=== PATIENT | male | born 1930 | race Hispanic/Latino ===

== ENCOUNTER 2018-06-01 19:03 | Inpatient (IN) | payer MEDICARE ==
[~2018-06-01] VITALS: Ht 165.1 cm; Wt 76.7 kg
[2018-06-01 22:06] VITALS: BP 156/54
[2018-06-01 22:39] LABS: BASOPHILS % (AUTO) 3.2 % (0.0-5.0); EOSINOPHILS % (AUTO) 8.2 % (0.0-8.0); HEMATOCRIT 35.5 % (42-54); LYMPHOCYTES % (AUTO) 16.6 % (21.0-51.0); MEAN CORPUSCULAR HEMOGLOBIN 32.1 pg (27.0-33.0); MEAN CORPUSCULAR HGB CONC 32.9 g/dL (32.0-36.0); MEAN CORPUSCULAR VOLUME 97.4 fL (79-99); MONOCYTES % (AUTO) 8.8 % (3.0-13.0); NEUTROPHILS % (AUTO) 63.2 % (40.0-77.0); NUCLEATED RED BLOOD CELLS 0.1 % (0.0-0.19); PLATELET COUNT (AUTO) 186 K/uL (130-400); RED BLOOD CELL COUNT(AUTO) 3.64 MIL/uL (4.50-6.20); RED CELL DISTRIBUTION WIDTH 14.6 % (11.0-15.5); WHITE BLOOD COUNT (AUTO) 7.2 K/uL (4.8-10.8)
[2018-06-01] MEDS ORDERED: NITROGLYCERIN 0.4 MG SL TAB SL PRN (22:45)
[2018-06-01] MEDS ORDERED: ONDANSETRON HCL MDV 20ML 2 MG/ML VIAL IV PRN (22:45)
[2018-06-01] MEDS ORDERED: GLUCAGON 1MG KIT 1 MG ML IM PRN (22:45)
[2018-06-01] MEDS ORDERED: DEXTROSE 50%-WATER 50 ML DISP.SYRIN IV PRN (22:45)
[2018-06-01] MEDS ORDERED: ACETAMINOPHEN 325 MG TAB PO PRN (22:45)
[2018-06-01 22:49] LABS: INR 1.05 (0.85-1.15); PARTIAL THROMBOPLASTIN TIME 32.7 SEC (26.3-35.5)
[2018-06-01 22:53] LABS: ALBUMIN 3.4 g/dL (3.5-5.0); BILIRUBIN,TOTAL 0.3 mg/dL (0.2-1.0); POTASSIUM 5.3 mmol/L (3.5-5.1)
[2018-06-01 23:05] LABS: HEMOGLOBIN A1C 5.7 % (4.0-6.0)
[2018-06-01 23:29] LABS: CREATININE 9.2 mg/dL (0.5-1.5)
[2018-06-02] VITALS (13 sets, daily range): BP systolic 94–148; BP diastolic 41–61
[2018-06-02 04:13] LABS: POTASSIUM 4.8 mmol/L (3.5-5.1)
[2018-06-02 04:29] LABS: CREATININE 9.6 mg/dL (0.5-1.5)
[2018-06-02] MEDS: INSULIN HUMULIN R 100 UNIT/ML 3ML SQ SCH ×4 (06:00→17:09)
[2018-06-02] MEDS ORDERED: LOSA100T2 PO (08:12)
[2018-06-02] MEDS ORDERED: CLOP75TA14 PO (08:12)
[2018-06-02] MEDS ORDERED: ROSU10TA27 PO (08:12)
[2018-06-02] MEDS ORDERED: PARO-37 PO (08:12)
[2018-06-02] MEDS ORDERED: METO-408 PO (08:12)
[2018-06-02] MEDS ORDERED: ALPR0.255 PO (08:12)
[2018-06-02] MEDS ORDERED: CYAN50008 PO (08:12)
[2018-06-02] MEDS ORDERED: CETI10TA57 PO (08:12)
[2018-06-02] MEDS ORDERED: NITR0.4T50 SL (08:12)
[2018-06-02] MEDS ORDERED: ASPI-555 PO (08:12)
[2018-06-02] MEDS ORDERED: LEVO112T4 PO (08:12)
[2018-06-02] MEDS ORDERED: BIMA12.5OS OU (08:12)
[2018-06-02] MEDS ORDERED: AMLO10TA6 PO (08:12)
[2018-06-02] MEDS ORDERED: ISOS60TA4 PO (08:12)
[2018-06-02] MEDS ORDERED: FOLI0.4T2 PO (08:12)
[2018-06-02] MEDS ORDERED: FOLI1CAP2 PO (08:12)
[2018-06-02] MEDS ORDERED: SEVE800T7 PO (08:12)
[2018-06-02] MEDS ORDERED: ALPRAZOLAM 0.25 MG TABLET PO PRN (08:15)
[2018-06-02] MEDS ORDERED: NITROGLYCERIN 0.4 MG SL TAB SL SCH (08:15)
[2018-06-02] MEDS ORDERED: IOHEXOL 350 MG/ML 100ML INFUS..BTL IV ONE (08:51)
[2018-06-02] MEDS ORDERED: BIVALIRUDIN 250 MG/VIAL IV ONE (08:51)
[2018-06-02] MEDS ORDERED: LIDOCAINE HCL 2% 20ML ONE (08:51)
[2018-06-02] MEDS ORDERED: NITROGLYCERIN 5 MG/ML 10 ML VIAL IV ONE (08:51)
[2018-06-02] MEDS ORDERED: IOHEXOL-350 50ML VIAL IV ONE (08:51)
[2018-06-02] MEDS: ASPIRIN 81MG TAB.CHEW PO SCH (09:00)
[2018-06-02] MEDS: METOPROLOL TARTRATE 25 MG TAB PO SCH ×2 (09:00→22:18)
[2018-06-02] MEDS: FAMOTIDINE/PF 20 MG/2 ML VIAL IV SCH (09:00)
[2018-06-02] MEDS: LOSARTAN 100 MG TABLET PO SCH (09:00)
[2018-06-02] MEDS: FOLIC ACID 1 MG TABLET PO SCH (09:00)
[2018-06-02] MEDS: PAROXETINE HCL 20 MG TABLET PO SCH (09:00)
[2018-06-02] MEDS: CLOPIDOGREL BISULFATE 75 MG TAB PO SCH (09:00)
[2018-06-02] MEDS: CETIRIZINE HCL 5 MG TABLET PO SCH (09:00)
[2018-06-02] MEDS: AMLODIPINE BESYLATE 5 MG TAB PO SCH ×2 (09:00→17:06)
[2018-06-02] MEDS: FOLIC ACID/VITAMIN B COMP W-C 1 MG CAPSULE PO SCH (09:00)
[2018-06-02] MEDS ORDERED: MIDAZOLAM HCL 1 MG/ML 2ML VIAL ONE (09:22)
[2018-06-02] MEDS ORDERED: FENTANYL CITRATE PF 50 MCG/1 ML 2ML VIAL ONE (09:22)
[2018-06-02] MEDS ORDERED: ASPIRIN 81MG TAB.CHEW ONE (10:12)
[2018-06-02] MEDS ORDERED: CLOPIDOGREL BISULFATE 300 MG TAB ONE (10:12)
[2018-06-02] MEDS ORDERED: ONDANSETRON HCL 4 MG/2 ML VIAL ONE (10:18)
[2018-06-02] MEDS ORDERED: METOPROLOL TARTRATE 1 MG/ML 5ML VIAL IV PRN (10:30)
[2018-06-02] MEDS ORDERED: SODIUM CHLORIDE 0.9% 1000ML 2,000 ML IV ONE (11:11)
[2018-06-02] MEDS ORDERED: 0.9% SODIUM CHLORIDE 250 ML IV BAG IV PRN (11:30)
[2018-06-02] MEDS ORDERED: ALBUMIN (HUMAN) 25% 100 ML IV PRN (11:30)
[2018-06-02] MEDS ORDERED: SODIUM CHLORIDE 0.9% 1000ML 1,000 ML IV PRN (11:30)
[2018-06-02] MEDS: SEVELAMER HCL 800 MG TABLET PO SCH ×2 (12:00→17:05)
[2018-06-02] MEDS: ISOSORBIDE MONO 60 MG TAB.SR PO SCH (17:05)
[2018-06-02] MEDS ORDERED: LATANOPROST 2.5 ML DROPS OU SCH (21:00)
[2018-06-02] MEDS ORDERED: ATORVASTATIN CALCIUM 20 MG TABLET PO SCH (21:00)
[2018-06-03 03:00] VITALS: BP 144/51
[2018-06-03 03:51] LABS: HEMATOCRIT 29.5 % (42-54); MEAN CORPUSCULAR HEMOGLOBIN 32.2 pg (27.0-33.0); MEAN CORPUSCULAR HGB CONC 33.2 g/dL (32.0-36.0); NUCLEATED RED BLOOD CELLS 0.1 % (0.0-0.19); PLATELET COUNT (AUTO) 161 K/uL (130-400); RED BLOOD CELL COUNT(AUTO) 3.04 MIL/uL (4.50-6.20); RED CELL DISTRIBUTION WIDTH 14.4 % (11.0-15.5); WHITE BLOOD COUNT (AUTO) 6.4 K/uL (4.8-10.8)
[2018-06-03 03:58] LABS: ALBUMIN 3.4 g/dL (3.5-5.0)
[2018-06-03] MEDS: INSULIN HUMULIN R 100 UNIT/ML 3ML SQ SCH ×3 (06:00→11:53)
[2018-06-03] MEDS ORDERED: LEVOTHYROXINE 112 MCG TABLET PO SCH (06:30)
[2018-06-03 07:25] VITALS: BP 144/53
[2018-06-03] MEDS: SEVELAMER HCL 800 MG TABLET PO SCH (08:00)
[2018-06-03] MEDS: CETIRIZINE HCL 5 MG TABLET PO SCH (10:08)
[2018-06-03] MEDS: FOLIC ACID/VITAMIN B COMP W-C 1 MG CAPSULE PO SCH (10:08)
[2018-06-03] MEDS: PAROXETINE HCL 20 MG TABLET PO SCH (10:08)
[2018-06-03] MEDS: ASPIRIN 81MG TAB.CHEW PO SCH (10:08)
[2018-06-03] MEDS: FOLIC ACID 1 MG TABLET PO SCH (10:09)
[2018-06-03] MEDS: LOSARTAN 100 MG TABLET PO SCH (10:09)
[2018-06-03] MEDS: CLOPIDOGREL BISULFATE 75 MG TAB PO SCH (10:09)
[2018-06-03] MEDS: ISOSORBIDE MONO 60 MG TAB.SR PO SCH (10:12)
[2018-06-03] MEDS: FAMOTIDINE/PF 20 MG/2 ML VIAL IV SCH (10:18)
[2018-06-03] MEDS: METOPROLOL TARTRATE 25 MG TAB PO SCH (10:19)
[2018-06-03 11:16] VITALS: BP 127/50
[2018-06-06] MEDS ORDERED: CYANOCOBALAMIN (VITAMIN B-12) 1,000 MCG TABLET PO SCH (09:00)
== END 2018-06-03 13:12 | disposition home or self-care (01) | DRG 246 ==
LOC: 2DH 21:26
PROVIDERS: ADMIT Internal Medicine; ATTEND Internal Medicine
PROC: 027034Z Dilation of Coronary Artery, One Artery with Drug-eluting Intraluminal Device, Percutaneous Approach (ICD-10-PCS; principal; 2018-06-02)
PROC: 4A023N7 Measurement of Cardiac Sampling and Pressure, Left Heart, Percutaneous Approach (ICD-10-PCS; 2018-06-02)
PROC: B2111ZZ Fluoroscopy of Multiple Coronary Arteries using Low Osmolar Contrast (ICD-10-PCS; 2018-06-02)
PROC: B3121ZZ Fluoroscopy of Left Subclavian Artery using Low Osmolar Contrast (ICD-10-PCS; 2018-06-02)
PROC: B2151ZZ Fluoroscopy of Left Heart using Low Osmolar Contrast (ICD-10-PCS; 2018-06-02)
PROC: B2131ZZ Fluoroscopy of Multiple Coronary Artery Bypass Grafts using Low Osmolar Contrast (ICD-10-PCS; 2018-06-02)
PROC: 5A1D70Z Performance of Urinary Filtration, Intermittent, Less than 6 Hours Per Day (ICD-10-PCS; 2018-06-02)
DX: T82.855A Stenosis of coronary artery stent, initial encounter (principal); N18.6 End stage renal disease; I25.110 Atherosclerotic heart disease of native coronary artery with unstable angina pectoris; I24.9 Acute ischemic heart disease, unspecified; I13.11 Hypertensive heart and chronic kidney disease without heart failure, with stage 5 chronic kidney disease, or end stage renal disease; D64.9 Anemia, unspecified; E78.2 Mixed hyperlipidemia; E11.22 Type 2 diabetes mellitus with diabetic chronic kidney disease; E11.51 Type 2 diabetes mellitus with diabetic peripheral angiopathy without gangrene; Y83.8 Other surgical procedures as the cause of abnormal reaction of the patient, or of later complication, without mention of misadventure at the time of the procedure; Y92.89 Other specified places as the place of occurrence of the external cause; Z99.2 Dependence on renal dialysis; Z82.49 Family history of ischemic heart disease and other diseases of the circulatory system; Z82.5 Family history of asthma and other chronic lower respiratory diseases
CPT/HCPCS: 36415; 80048; 80053; 80061; 82040; 82948; 83036; 83735; 85025; 85027; 85610; 85730; 90935; 93005; 93459; C1725; C1760; C1769; C1894; C9600; G0378; J0583; J1644; J2250; J2405; J3010; J3490; J7030; P9046; Q9967